=== PATIENT | male | born 1950 ===

== ENCOUNTER → 2016-09-21 | Day surgery (SDC) | payer OTHER ==
[2016-09-21] VITALS (11 sets, daily range): BP systolic 117–157; BP diastolic 77–93
[~2016-09-21] VITALS: Ht 175.3 cm; Wt 88.5 kg
[~2016-09-21] MED LIST: Bupivacaine w/Epi 0.25% 30ml Vial INJ ONE; EPINEPHrine 1mg/1ml Amp ONE; LR 1000ml ONE; Lidocaine 1% MPF 10mg/ml 5ml ONE; METFORMIN HCL500 M1 ORAL; Metoclopramide 10mg/2ml Inj IVP PRN; Metoclopramide 10mg/2ml Inj ONE; Midazolam 2mg/2ml Inj ONE; Morphine Sulfate 2mg/ml Inj IVP PRN; NS Irrig 4000ml IRRIG ONE; Norco 5mg/325mg tab ORAL PRN; Propofol 10mg/ml 20ml IV ONE; Ropivacaine 5mg/ml Vial 20ml INJ ONE; Zemuron 50mg/5ml Inj IV ONE; ceFAZolin 1gm/50ml Premix 50 ML IV ONE; celeBREX 200mg Cap **SURGERY PATIENTS ONLY ORAL ONE; ePHEDrine 50mg/ml Inj ONE; fentaNYL 100 mcg/2 mL IV ONE; fentaNYL 100 mcg/2 mL IV PRN; oxyCONTIN 20mg tab ORAL ONE
--- NOTE | 2016-09-21 08:16 | Operative Note - PDOC ---
Operative Note Operative Note Pre-op Diagnosis: right shoulder rct, impingement Procedure: right shoulder arthroscopy Post-op Diagnosis: same as pre-op plus Operative Findings: consistent w/pre-op dx studies Anesthesia: general Specimen: none Complications: none Condition: stable Estimated Blood Loss: none Implant(s) used?: JOHN Rodriguez Sep 21, 2016 08:16
--- NOTE | 2016-09-21 08:16 | Pre-Procedure Note/Attestation ---
Pre-Procedure Note/Attestation Complete Prior to Procedure Planned Procedure: left Procedure Narrative: shoulder arthroscopy, sad, possible rc repair Indications for Procedure Pre-Operative Diagnosis: right shoulder rct, impingement Attestation I attest that I discussed the nature of the procedure; its benefits; risks and complications; and alternatives (and the risks and benefits of such alternatives ), prior to the procedure, with the patient (or the patient's legal billing representative). I attest that, if there was a reasonable possibility of needing a blood transfusion, the patient (or the patient's legal billing representative) was given the [facility] standardized written summary, pursuant to the Jorge Rubicon Blood Safety Act ([place] Health and Safety Code # 1645, as amended). I attest that I re-evaluated the patient just prior to the surgery and that there has been no change in the patient's H&P, except as documented below: JOHN JAUREGUI Sep 21, 2016 08:16
--- NOTE | 2016-09-21 10:45 | Immediate Post-Op Evaluation ---
Immediate Post-Op Evalulation Immediate Post-Op Evalulation Procedure: left shoulder arthroscopy Date of Evaluation: Sep 21, 2016 Time of Evaluation: 10:44 IV Fluids: 500 Blood Pressure Systolic: 136 Blood Pressure Diastolic: 83 Pulse Rate: 53 Respiratory Rate: 14 O2 Sat by Pulse Oximetry: 99 Temperature (Fahrenheit): 97.4 Nausea: No Vomiting: No Complications none Patient Status: awake, reacts, patent Drug: ancef Given Within 1 Hr of Incision: Yes Time Given: 09:30 ARDEN LAINEZ CRNA Sep 21, 2016 10:45
--- NOTE | 2016-09-21 10:47 | Anethesia Preoperative Eval ---
Anesthesia Pre-op PMH/ROS General Date of Evaluation: Sep 21, 2016 Time of Evaluation: 09:00 Anesthesiologist: jessica ASA Score: ASA 2 Mallampati Score Class I : Soft palate, uvula, fauces, pillars visible Class II: Soft palate, uvula, fauces visible Class III: Soft palate, base of uvula visible Class IV: Only hard plate visible Mallampati Classification: Class II Surgeon: nuris Diagnosis: left shoulder pain Surgical Procedure: left shoulder arthroscopy Anesthesia History: none Social History: smoking, current smoker Family History: no anesthesia problems Allergies: Coded Allergies: No Known Allergies (Unverified , 05/02/16) Medications: see eMAR Past Medical History Cardiovascular: Denies: CAD, HTN, CO, arrhythmia, other, valve dz Pulmonary: Reports: other Gastrointestinal/Genitourinary: Denies: CRI, ESRD, GERD, other Neurologic/Psychiatric: Denies: CVA, TIA, dementia, depression/anxiety, other Endocrine: Reports: DM HEENT: Denies: OUZINKIE (L), OUZINKIE (R), cataract (L), cataract (R), glaucoma, other Hematology/Immune: Denies: DVT, anemia, bleeding disorder, other Musculoskeletal/Integumentary: Denies: DDD, DJD, OA, RA, edema, other Anesthesia Pre-op Phys. Exam Physician Exam Last Vital Signs Date Time Temp Pulse Resp B/P Pulse Ox O2 Delivery O2 Flow Rate FiO2 09/21/16 07:53 98.1 75 18 123/78 97 Room Air Constitutional: NAD Neurologic: CN 2-12 intact Cardiovascular: RRR Respiratory: CTA Gastrointestinal: S/NT/ND Airway Exam Mallampati Classification 2 Mallampati Score: Class II MO: full Neck: thick TMD: 1fb ROM: full Dentures: no lower, no upper Anesthesia Pre-op A/P Labs wnl Studies Pre-op Studies: EKG - SR Risk Assessment & Plan Plan: general and interscelne block Status Change Before Surgery: No Pre-Antibiotics Drug: ancef 2 g Given Within 1 Hr of Incision: Yes Time Given: 09:30 ARDEN LAINEZ CRNA Sep 21, 2016 10:47
--- NOTE | 2016-09-21 13:21 | 48 Hour Post Anesthesia Eval ---
Post Anesthesia Evaluation Procedure: left shoulder arthroscopy Date of Evaluation: Sep 21, 2016 Time of Evaluation: 11:30 Blood Pressure Systolic: 130 0: 77 Pulse Rate: 64 Respiratory Rate: 14 Airway: patent Nausea: No Vomiting: No Hydration Status: adequate Cardiopulmonary Status: normal Mental Status/LOC: patient returned to baseline Post-Anesthesia Complications: none Follow-up care needed: N/A ARDEN LAINEZ CRNA Sep 21, 2016 13:21
--- NOTE | 2016-09-21 19:30 | Operative Note - Dictated ---
DATE OF OPERATION: 09/21/2016 PREOPERATIVE DIAGNOSES: 1. Left shoulder partial rotator cuff tear. 2. Left shoulder impingement syndrome. POSTOPERATIVE DIAGNOSES: 1. Left shoulder partial rotator cuff tear. 2. Left shoulder impingement syndrome. PROCEDURES: 1. Left shoulder arthroscopy. 2. Intra-articular debridement to his left shoulder with subacromial decompression bursectomy. SURGEON: Farhan Cody M.D. ANESTHESIA: Left interscalene with general. INDICATION FOR THE PROCEDURE: The patient is a pleasant gentleman, who has had progressive left shoulder pain. He had evidence of a bursal-sided rotator cuff tear, a continued issue, therefore, elected to undergo left shoulder arthroscopy, possible repair versus debridement of the rotator cuff with subacromial decompression with bursectomy. Risks, limitations, expectations, and complications of the procedure were discussed in detail. All questions were addressed. DESCRIPTION OF PROCEDURE: An informed consent was obtained. The patient was taken to the operating room and placed under interscalene general anesthesia. The patient was then carefully placed in the beach-chair position. Left shoulder was prepped and draped in a sterile manner. Time-out was performed. A posterolateral stab incision was made. Trocar was introduced into the glenohumeral joint. Systematic tour of the shoulder was performed. No significant chondral damage. Anterior labrum appeared to be intact along with the subscapularis. The biceps tendon as well as superior labrum was intact. The undersurface of the rotator cuff was intact as well. At this point, the camera was repositioned into the subacromial space. Hypertrophic bursal tissue was all debrided and removed and identified the acromial spur. Acromioplasty was started from lateral to medial and completed from posterior to anterior. Once that was done, the bursal side of the rotator cuff was assessed and there was bursal-sided partial rotator cuff tear involving supraspinatus tendon. There is now full thickness. Bursectomy was completed. At that point, the instruments were removed. Portal sites were closed with 3-0 Monocryl suture. Steri-Strips and a sterile dressing were applied. The patient was awoken and taken to the recovery room with stable vital signs. ESTIMATED BLOOD LOSS: Minimal. COMPLICATIONS: None. SPECIMENS: None. IMPLANTS: None. Farhan Cody M.D. DR: ANTONIA JOB#: [id number] CC:
== END | disposition home or self-care (01) ==
LOC: SUR 07:16
DX: S46.012A Strain of muscle(s) and tendon(s) of the rotator cuff of left shoulder, initial encounter (principal); M75.42 Impingement syndrome of left shoulder; V49.9XXA Car occupant (driver) (passenger) injured in unspecified traffic accident, initial encounter; Y92.410 Unspecified street and highway as the place of occurrence of the external cause; Y99.9 Unspecified external cause status; E11.9 Type 2 diabetes mellitus without complications; Z79.84 Long term (current) use of oral hypoglycemic drugs; F17.210 Nicotine dependence, cigarettes, uncomplicated
CPT/HCPCS: 29823; 29826; 82962; J0171; J0690; J2250; J2405; J2704; J2765; J2795; J3010; J7120; 94003; 94150

== ENCOUNTER 2017-02-26 05:09 | Inpatient (IN) | payer OTHER ==
[2017-02-26] VITALS (15 sets, daily range): BP systolic 114–139; BP diastolic 75–93
[~2017-02-26] VITALS: Ht 175.3 cm; Wt 88.5 kg
[~2017-02-26 05:09] MED LIST changes: -Bupivacaine w/Epi 0.25% 30ml Vial INJ ONE; -EPINEPHrine 1mg/1ml Amp ONE; -LR 1000ml ONE; -Lidocaine 1% MPF 10mg/ml 5ml ONE; -Metoclopramide 10mg/2ml Inj IVP PRN; -Metoclopramide 10mg/2ml Inj ONE; -Midazolam 2mg/2ml Inj ONE; -Morphine Sulfate 2mg/ml Inj IVP PRN; -NS Irrig 4000ml IRRIG ONE; -Norco 5mg/325mg tab ORAL PRN; -Propofol 10mg/ml 20ml IV ONE; -Ropivacaine 5mg/ml Vial 20ml INJ ONE; -Zemuron 50mg/5ml Inj IV ONE; -ceFAZolin 1gm/50ml Premix 50 ML IV ONE; -celeBREX 200mg Cap **SURGERY PATIENTS ONLY ORAL ONE; -ePHEDrine 50mg/ml Inj ONE; -fentaNYL 100 mcg/2 mL IV ONE; -fentaNYL 100 mcg/2 mL IV PRN; -oxyCONTIN 20mg tab ORAL ONE
[2017-02-26] MEDS ORDERED: Thrombin 5000 units TOPIC ONE (06:30)
[2017-02-26] MEDS ORDERED: Heparin 5000 units/ml inj ONE (06:30)
[2017-02-26] MEDS ORDERED: Ropivacaine 5mg/ml Vial 20ml INJ ONE (06:31)
[2017-02-26] MEDS ORDERED: Bupivacaine 0.5% Inj 30 ml vial INJ ONE (06:31)
[2017-02-26] MEDS ORDERED: Surgicel 4in x 8in TOPIC ONE (06:31)
[2017-02-26] MEDS ORDERED: Bupivacaine w/Epi 0.5% 30ml Vial INJ ONE (06:31)
[2017-02-26] MEDS ORDERED: Bacitracin 50000 Units Vial ONE (06:31)
[2017-02-26] MEDS ORDERED: Vancomycin 1gm inj IVPB ONE (06:31)
[2017-02-26] MEDS ORDERED: LR 1000ml 1,000 ML IVLG SCH (06:34)
[2017-02-26] MEDS ORDERED: Metoclopramide 10mg/2ml Inj IVP PRN (06:45)
[2017-02-26] MEDS ORDERED: LORazepam Inj 2mg/ml 1ml IV PRN (06:45)
[2017-02-26] MEDS ORDERED: Midazolam 2mg/2ml Inj IVP PRN (06:45)
[2017-02-26] MEDS ORDERED: fentaNYL 100 mcg/2 mL IV PRN (06:45)
[2017-02-26] MEDS ORDERED: Meperidine 25mg/0.5ml Inj (FOR RIGORS ONLY) IV PRN (06:45)
[2017-02-26] MEDS ORDERED: Atropine Inj 1mg/10ml Syr IV PRN (06:45)
[2017-02-26] MEDS ORDERED: Ketorolac 30mg Inj IV PRN (06:45)
[2017-02-26] MEDS ORDERED: Norco 5mg/325mg tab ORAL PRN (06:45)
[2017-02-26] MEDS ORDERED: DiphenhydrAMINE 50mg/ml Inj IVP PRN (06:45)
[2017-02-26] MEDS ORDERED: Oxycodone/Acetaminophen 5-325 ORAL PRN (06:45)
[2017-02-26] MEDS ORDERED: Norco 7.5mg/325mg tab ORAL PRN (06:45)
[2017-02-26] MEDS ORDERED: Ketorolac 60mg Inj IV PRN (06:45)
--- NOTE | 2017-02-26 06:50 | Anethesia Preoperative Eval ---
Anesthesia Pre-op PMH/ROS General Date of Evaluation: Feb 26, 2017 Time of Evaluation: 07:21 Anesthesiologist: Kameron ASA Score: ASA 2 Mallampati Score Class I : Soft palate, uvula, fauces, pillars visible Class II: Soft palate, uvula, fauces visible Class III: Soft palate, base of uvula visible Class IV: Only hard plate visible Mallampati Classification: Class II Surgeon: Zack Diagnosis: Back Pain Surgical Procedure: ALIF L3-4, L4-5,PSF, Post Screws, Instruments Anesthesia History: none Family History: no anesthesia problems Allergies: Coded Allergies: No Known Allergies (Unverified , 05/02/16) Medications: see eMAR Past Medical History Cardiovascular: Reports: HTN Endocrine: Reports: DM - FBS 127 Other: other - Overweight Anesthesia Pre-op Phys. Exam Physician Exam Last Vital Signs Date Time Temp Pulse Resp B/P Pulse Ox O2 Delivery O2 Flow Rate FiO2 02/26/17 05:55 97.9 69 18 131/93 98 Room Air Constitutional: NAD Neurologic: CN 2-12 intact Cardiovascular: RRR Respiratory: CTA Gastrointestinal: S/NT/ND Airway Exam Mallampati Score: Class II MO: full ROM: limited Teeth: intact Anesthesia Pre-op A/P Risk Assessment & Plan Assessment: ASA 2 Plan: GA, BIS, Glidescope Status Change Before Surgery: No Pre-Antibiotics Dru Grams Ancef IV Given Within 1 Hr of Incision: Yes Time Given: 07:36 Terry Melo MD Feb 26, 2017 06:50
--- NOTE | 2017-02-26 06:51 | Immediate Post-Op Evaluation ---
Immediate Post-Op Evalulation Immediate Post-Op Evalulation Procedure: ALIF L3-4, L4-5,PSF, Post Screws, Instruments Date of Evaluation: Feb 26, 2017 Time of Evaluation: 12:14 IV Fluids: 1000 LR Blood Products: 0 Estimated Blood Loss: 50 Urinary Output: 350 Blood Pressure Systolic: 134 Blood Pressure Diastolic: 75 Pulse Rate: 79 Respiratory Rate: 16 O2 Sat by Pulse Oximetry: 99 Temperature (Fahrenheit): 97.8 Pain Score (1-10): 3 Nausea: No Vomiting: No Complications 0 Patient Status: awake, reacts, patent, extubated, none Hydration Status: adequate DruGrams Ancef IV Given Within 1 Hr of Incision: Yes Time Given: 07:36 Terry Melo MD Feb 26, 2017 06:51
[2017-02-26] MEDS ORDERED: Propofol 10mg/ml 100ml btl IV ONE (07:00)
[2017-02-26] MEDS ORDERED: Dexamethasone 20mg/5ml IVP ONE (07:00)
[2017-02-26] MEDS ORDERED: ceFAZolin sod 1 GM in NS 55 ML IVPB ONE (07:00)
[2017-02-26] MEDS ORDERED: Acetaminophen (Non formulary) 1,000 MG/100 ML ML IV ONE (07:15)
[2017-02-26] MEDS ORDERED: Metoprolol 5mg/5ml Inj ONE (07:30)
[2017-02-26] MEDS ORDERED: fentaNYL 250mcg/5ml ONE (07:30)
[2017-02-26] MEDS ORDERED: Lidocaine 1% Plain 30 ml INJ ONE (07:30)
[2017-02-26] MEDS ORDERED: Neostigmine 1mg/ml 10ml Inj ONE (07:30)
[2017-02-26] MEDS ORDERED: Midazolam 2mg/2ml Inj ONE (07:30)
[2017-02-26] MEDS ORDERED: oxyCODONE 5mg IR tab ORAL PRN ×2 (07:30→10:30)
[2017-02-26] MEDS ORDERED: LR 1000ml ONE (07:30)
[2017-02-26] MEDS ORDERED: Sterile Water Irrig 1000ml IRRIG ONE (07:30)
[2017-02-26] MEDS ORDERED: Chloraseptic Spray 20mL Bottle ORAL PRN (07:30)
[2017-02-26] MEDS ORDERED: fentaNYL 100 mcg/2 mL IV ONE (07:30)
[2017-02-26] MEDS ORDERED: HYDROmorphone 1mg/ml Carpuject IVP PRN (07:30)
[2017-02-26] MEDS ORDERED: Zemuron 50mg/5ml Inj IV ONE (07:30)
[2017-02-26] MEDS ORDERED: Lidocaine 1% MPF 10mg/ml 5ml ONE (07:30)
[2017-02-26] MEDS ORDERED: NS Irrig 1000ml ONE (07:30)
[2017-02-26] MEDS ORDERED: Glycopyrrolate 0.2mg/ml 1ml Vial ONE (07:30)
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
[2017-02-26] MEDS ORDERED: HYDROmorphone 1mg/ml Carpuject SUBQ PRN (11:45)
[2017-02-26] MEDS ORDERED: Naloxone 0.4mg/ml Inj IVP PRN (11:45)
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
[2017-02-26] MEDS: Hydromorphone 0.5mg/0.5ml inj IVP PRN ×3 (12:26→13:15)
[2017-02-26] MEDS ORDERED: PCA HYDROmorphone 1mg/ml 30 ML IV PRN ×2 (13:30)
--- NOTE | 2017-02-26 13:34 | Diagnostic Imaging Report ---
Indication: Back pain Comparison: None Findings: Fluoroscopic views of the lumbar spine were obtained. Intraoperative imaging showing replacement of the L3-4 and L4-5 discs with prosthetic discs. Initial films show localization of these 2 levels. Impression: Intraoperative imaging
[2017-02-26] MEDS ORDERED: D5 1/2NS 1,000 ML IV SCH (15:15)
[2017-02-26] MEDS: ceFAZolin sod 1 GM in D5W 55 ML IV SCH (16:23)
--- NOTE | 2017-02-26 17:15 | Operative Note - Dictated ---
DATE OF OPERATION: 02/26/2017 PREOPERATIVE DIAGNOSIS: Posttraumatic lumbar back pain. POSTOPERATIVE DIAGNOSIS: Posttraumatic lumbar back pain. SURGEON: Albert Dixon, Ph.D., M.D., anterior and Dr. Chance, Vascular Surgery, anterior. Please see separate dictation for exposure and closure by Dr. Dixon with assist. Posterior, Dr. Albert Dixon, Ph.D., M.D., primary surgeon. [employer] OPERATOR: BLANCO Hoyos. ANESTHESIOLOGIST: Terry Melo M.D. ANESTHESIA: General with intubation. PROCEDURES: 1. Anterior interbody reconstruction and fusion with internal fixation, fusion with bone morphogenic protein and titanium spacer L3-L4 and L4-L5. 2. Intraoperative fluoroscopy interpreted by surgeons. 3. SSEP monitoring. 4. Postop posterior surgery. 5. Pedicle screw instrumentation L3-L5 and facet fusions L3-L4 and L4-L5. 6. Fluoroscopy interpreted by surgeons. 7. Electrical screw stimulation. PROCEDURE IN DETAIL: The patient was brought to the operating room and in supine position, general anesthesia with intubation was induced. Intravenous antibiotics and intravenous Decadron were administered 30 minutes prior to incision time. After appropriate positioning, the anterior abdomen was sterilely prepped and draped free in the usual sterile fashion. Please see exposure dictation and closure dictation by Dr. Chance. Identification of the L3-L4 and L4-L5 intervals were undertaken with cross-table and AP fluoroscopic imaging under sterile conditions with a needle placed into the disc spaces demonstrating midline and correct disks. Levels were marked. Midline marked. Oldhams removed. L3-L4: Anterior annulotomy followed with diskectomy to but not through the posterior longitudinal ligament was undertaken. Denuding of the endplates, cephalad caudad to subchondral bone/removal of cartilage undertaken. SSEP monitoring stable. Appropriate trials utilized followed with the appropriate Aero Lacey interbody titanium device application, lordosis with BMP placed within the device for fusion. Internal fixation undertaken. Fluoroscopic guidance demonstrated excellent alignment and positioning. SSEP monitoring stable. Graft was incorporated in fibrin glue. Attention was turned to the L4-L5 interval where an annulotomy was performed followed with diskectomy to but not through the posterior longitudinal ligament. Denuding of endplates to subchondral bone. Interpositional grafting with the titanium Aero Sanjana graft with lordosis. Graft containing bone morphogenic protein placed for fusion. After appropriate positioning internal fixation deployed. Fluoroscopic guidance demonstrated excellent alignment and positioning. The patient is stable. No dural tears or leaks or CSF fluid noticed at any time during the procedure by the level. The L4-L5 graft was encased in fibrin glue. After complete closure, the patient was carefully turned to the new operating table to the prone position. All new instruments opened. Lumbodorsal spine was sterilely prepped and draped free in usual sterile fashion. Fluoroscopic guidance under sterile conditions with markers in place demonstrating the correct level for incision placement. Markers removed. Incision was placed through dermis and epidermis. Electrocautery dissection carried through the subcutaneous tissue to the level of lumbodorsal fascia and incised right and left of midline over the respective intervals. Exposure undertaken at the pars articularis insertion sites bilaterally for the L3, L4, and L5 pedicle screws. Pedicle screw instrumentation was undertaken at bilateral L3 and bilateral L5 with sequential drilling of the posterior cortex with the appropriate positions based on anatomy and fluoroscopic guidance followed with probing of the pedicle, tapping of the pedicle, and determination of cortical wall integrity with a ball-tip probe. Screw placement with the appropriate dimensions placed. SSEP monitoring normal. No EMGs. Screws stimulated at 5 milliamps negative bilaterally with 4 twitches noted on skin. Wound irrigated with antibiotic-containing saline. Interpositional rods clamped into position and torqued. Wound re-irrigated with antibiotic-containing saline. A 2 g vancomycin powder applied. Sequential reapproximation with Vicryl suture material of the lumbodorsal fascia and subcutaneous tissue in multiple layers. Dermis and epidermis were further reapproximated with staple sutures. Sterile bandage applied and maintained in place with tape. The patient carefully turned from the prone to the supine position on the transport bed where he was awakened and extubated in the operating room and transported to postop recovery in good stable condition. Albert Dixon M.D. DR: ANGELA JOB#: [id number] CC:
--- NOTE | 2017-02-26 18:00 | Operative Note - Dictated ---
DATE OF OPERATION: 02/26/2017 DICTATING PHYSICIAN: Aj Chance M.D. VASCULAR SURGEON: Aj Chance M.D. SPINE SURGEON: Albert Dixon M.D. PREOPERATIVE DIAGNOSIS: Degenerative disk disease. POSTOPERATIVE DIAGNOSIS: Degenerative disk disease. PROCEDURE PERFORMED: 1. Anterior retroperitoneal exposure of L3-4 vertebral interspace. 2. Anterior retroperitoneal exposure of L4-5 vertebral interspace. INDICATIONS: The patient is a very pleasant gentleman, who was seen in my office prior to surgery. He has been scheduled for anterior fusion of lumbar spine. He has no prior intra-abdominal surgeries. He denies any history of deep venous thrombosis or bleeding complications. He has been made aware of the risks of surgery including possible vascular injury and possible need for blood transfusion, and deep venous thrombosis. DESCRIPTION OF FINDINGS: A vertical midline incision was used, left retroperitoneal approach was used. There was no peritoneal or ureteral violation. There is no vascular injury. Exposure of both L3-4 and L4-5 was obtained simultaneously with the use of both the Omni and Park blades. On completion, the peritoneum and ureter intact. Iliac vessels are intact. There is a palpable femoral pulse and normal pulse oximetry in the left foot. During retraction, there was a loss of the pulse oximetry signal as well as some decreased somatosensory potentials, however, both of these returned to normal with the use of retractor and on completion, palpable pulses. BLOOD LOSS: Approximately 100 to 150 mL. DESCRIPTION OF PROCEDURE: The patient seen in the operating room, general anesthesia was used. Intravenous antibiotics were given. The patient's abdomen was prepped draped. Proper time-out procedures were taken. A vertical midline incision made infraumbilically. The anterior fascia was incised longitudinally midline. A plane was identified posterior to the left rectus abdominis developed posterolaterally towards the patient's left. The retroperitoneal space entered below the arcuate line. The peritoneum and ureter mobilized towards the patient's right exposing the left common iliac vessels. Dissection carried out the left side of the left common iliac artery and vein overlying lymphatics were ligated with vascular clips. The iliolumbar veins identified and encircled using a 2-0 silk tie and then triply ligated proximally distally vascular clips and divided. Then, the L4 segmental artery and vein were also identified and ligated with vascular clips and divided. The L3 segmental artery and vein as well as large lymphatics were identified and ligated with vascular clips and then divided. This allowed us to retract the left common vessels towards the patient's right exposing the anterior surface of the L3-4 and L4-5. The Park blades were used to retract the iliac vessels around the right side of the vertebral body and vessels superiorly and inferiorly and fluoroscopy was then used to confirm the appropriate levels. An instrumentation was performed at both L3-4 and L4-5 dictated separately. On completion, the peritoneum and ureter intact. Iliac vessels are intact. Anterior fascia closed using number 1 PDS in a running fashion. Skin and subcutaneous tissue closed using 3-0 Vicryl and 4-0 Monocryl running subcuticular closure technique. Estimated blood loss was 100 to 200 mL. COMPLICATIONS: None. Aj Chance M.D. DR: CHANDA JOB#: [id number] CC: Whit Rosario M.D. ; Fax#: [phone]
[2017-02-26] MEDS: Tamsulosin 0.4mg cap ORAL SCH (20:25)
[2017-02-27 00:13] VITALS: BP 123/74
[2017-02-27] MEDS: ceFAZolin sod 1 GM in D5W 55 ML IV SCH ×2 (00:34→08:26)
[2017-02-27 04:00] VITALS: BP 138/81
[2017-02-27] MEDS: NovoLOG Insulin Flexpen SUBQ SCH ×5 (06:00→23:10)
[2017-02-27] MEDS: PCA shift volume MISC SCH ×2 (07:07→19:00)
[2017-02-27 08:00] VITALS: BP 128/76
--- NOTE | 2017-02-27 10:10 | 48 Hour Post Anesthesia Eval ---
Post Anesthesia Evaluation Procedure: ALIF L3-4, L4-5,PSF, Post Screws, Instruments Date of Evaluation: Feb 27, 2017 Time of Evaluation: 10:09 Blood Pressure Systolic: 117 0: 78 Pulse Rate: 77 Respiratory Rate: 11 Temperature (Fahrenheit): 97 O2 Sat by Pulse Oximetry: 98 Nausea: No Vomiting: No Alvaro Miller MD Feb 27, 2017 10:10
--- NOTE | 2017-02-27 11:33 | General Progress Note ---
Progress Note Progress Note POD 2 AVSS - bowel sounds minimally distended no ower extremity radiculopathy n/c intact plan NPO until Flatus or Bowel Movement Gait training 3 x today with PY up to chair 2 x / day min 1 hr each time JOAO FIGUEROA Feb 27, 2017 11:33
[2017-02-27 12:00] VITALS: BP 130/77
[2017-02-27 16:00] VITALS: BP 109/60
[2017-02-27] MEDS ORDERED: 1/2 NS 1000ml IV ONE (17:05)
[2017-02-27] MEDS ORDERED: D5 1/2NS 1000ml IV ONE (17:05)
--- NOTE | 2017-02-27 18:15 | Progress Note ---
DATE: 02/27/2017 ACUTE PAIN MANAGEMENT PHYSICIAN PROGRESS NOTE MEDICATIONS: Medication administration record reviewed. Medications include Tylenol, Mylanta, Soma, Benadryl, [place], Dilaudid PACKING ATTENDANT, Roxicodone, Protonix, Chloraseptic, Phenergan, and Flomax. LABORATORY STUDIES: No interval laboratory studies. OBJECTIVE: VITAL SIGNS: Pulse oximetry 98%, respiration 11, pulse 77, and afebrile. I spent over 60 minutes in consultation today. I saw the patient at the bedside with his . I discussed the case with the nurse RN, Mitzi. The patient did ambulate with physical therapy to the room door. He is moving all extremities x4. He has considerable left lower quadrant abdominal pain by the incision area. The patient denies any nausea symptoms. He does have positive bowel sounds but has not been burping or passing flatus yet. We will continue him on NPO except for medications and ice chips until there is evidence of baptist of bowel function after his anterior lumbar interbody fusion procedure. The patient continues to use his PACKING ATTENDANT unit and does have several p.r.n. analgesics available as well including Soma, [place], and breakthrough Dilaudid. I will continue this current analgesic plan as the patient advances with his ambulation. I encouraged aggressive use of incentive spirometer for good pulmonary toilet. The patient already has a good supply of pain medicines at home from his 2016 hospitalization. I did encourage aggressive incentive spirometer usage. Isrrael Campbell M.D. : PIPPA JOB#: [id number] CC:
[2017-02-27 20:00] VITALS: BP 127/65
[2017-02-27] MEDS: Tamsulosin 0.4mg cap ORAL SCH (21:03)
[2017-02-28 04:00] VITALS: BP 135/83
[2017-02-28] MEDS: NovoLOG Insulin Flexpen SUBQ SCH ×3 (05:57→17:43)
[2017-02-28] MEDS: PCA shift volume MISC SCH (07:07)
[2017-02-28 08:00] VITALS: BP 140/80
[2017-02-28] MEDS ORDERED: 1/2 NS 1000ml IV ONE (10:46)
[2017-02-28] MEDS: Norco 10mg/325mg tab ORAL PRN ×3 (11:17→23:13)
[2017-02-28 12:00] VITALS: BP 121/78
--- NOTE | 2017-02-28 14:44 | General Progress Note ---
Progress Note Progress Note AQVSS - joss reed d/c n/c intact plan: cannot advance diet until JOAO Pelletier Feb 28, 2017 14:44
[2017-02-28 16:00] VITALS: BP 140/91
--- NOTE | 2017-02-28 17:30 | Progress Note ---
DATE: 02/28/2017 ACUTE PAIN MANAGEMENT PHYSICIAN PROGRESS NOTE.: MEDICATIONS: Medication administration record reviewed. Medications include IV fluids, Protonix, Flomax. P.o. medications include diabetic medications, [place], Phenergan, Soma, Chloraseptic spray, Benadryl, Mylanta, Zofran, Dilaudid, and Tylenol. OBJECTIVE: VITAL SIGNS: Afebrile, pulse 103, respirations 20, blood pressure 140/80, and oxygen saturation 95% on room air. LABORATORY STUDIES: No interval laboratory studies. I spent over 60 minutes in consultation today. I saw the patient at bedside with the nurse RN Malissa. The patient has been doing exceedingly well. He has been ambulating repeatedly with assistance and his front wheel walker. He denies any shortness of breath or chest pain. The pain is very well controlled, which he rates at 4/10. At this time on postoperative day #2, I will trial him off of the SPECIAL ED ASSISTANT unit. I will continue him on breakthrough doses of [place], Soma, and low-dose Dilaudid for analgesia. The patient has no symptoms or obvious signs of anxiety. The Martines catheter remains in place. We will check in with the surgeon when he is cleared to remove, we will try removing the Martines catheter. The patient remains NPO except for medications and ice chips. He has not passed positive flatus after his anterior lumbar interbody fusion procedure. He is having mild abdominal distention and but there is no rebound or any bound or guarding. The patient has been very compliant using his incentive spirometer. Overall, the patient is progressing very well after his fusion surgery, we will continue to wait for druze of bowel function as evidenced with positive flatus. He will remain on IV fluids for adequate hydration. I will continue with his analgesic regimen as outlined above. Isrrael Campbell M.D. : PIPPA JOB#: [id number] CC:
[2017-02-28 20:00] VITALS: BP 142/85
[2017-03-01] VITALS: BP 143/91
[2017-03-01 04:00] VITALS: BP 127/77
[2017-03-01] MEDS: Norco 10mg/325mg tab ORAL PRN ×3 (04:57→16:51)
[2017-03-01] MEDS: NovoLOG Insulin Flexpen SUBQ SCH ×4 (06:00→17:25)
[2017-03-01 08:00] VITALS: BP 118/70
--- NOTE | 2017-03-01 11:16 | Progress Note ---
DATE: 03/01/2017 ACUTE PAIN MANAGEMENT PHYSICIAN PROGRESS NOTE MEDICATIONS: Medication administration record reviewed. Medications include Phenergan, Chloraseptic, Protonix, Zofran, insulin medications, diabetes medications, Dilaudid, [place], Benadryl, Soma, Mylanta, and Tylenol. LABORATORY STUDIES: No interval laboratory studies. OBJECTIVE: VITAL SIGNS: Pain level is 5/10 on the visual analog pain scale, oxygen saturation 100% on room air, blood pressure 143/91, respirations 18, pulse 105, and afebrile. I saw the patient at the bedside with his after discussing with the nurse RN, Sunday. The patient continues to ambulate aggressively. His is present for good social support. I spent over 60 minutes in consultation today. I discussed the case with the surgeon, Dr. Dixon. The patient just started passing positive flatus. I have asked the nurse to contact the surgeon, Dr. Dixon, to determine if it is okay to advance the patient's diet now that he shows advancement and return of bowel function. The patient is hungry and denies any nausea symptoms. The patient has been very compliant using his incentive spirometer along with ambulating aggressively. We will continue these to . The patient has been tolerating his pain off of the CURATOR OF EDUCATION unit by using p.r.n. Addison, Dilaudid, and Soma. We will continue this regimen for primary analgesia. When the patient is in bed, we will continue sequential compression pneumatic devices for DVT prophylaxis. Overall, the patient is progressing well after his extensive lumbar spine fusion surgery. Isrrael Campbell M.D. DR: JULIANNE JOB#: [id number] CC:
[2017-03-01 12:00] VITALS: BP 150/95
[2017-03-01 16:00] VITALS: BP 148/89
[2017-03-01 20:00] VITALS: BP 142/97
[2017-03-02] VITALS: BP 119/65
[2017-03-02 04:00] VITALS: BP 137/65
[2017-03-02] MEDS: Norco 10mg/325mg tab ORAL PRN ×2 (04:33→15:41)
[2017-03-02] MEDS: NovoLOG Insulin Flexpen SUBQ SCH ×3 (06:00→12:00)
[2017-03-02] MEDS ORDERED: Fleet's Enema 133ml RECTAL PRN (07:30)
[2017-03-02] MEDS ORDERED: Magnesium Citrate Liq Btl ORAL PRN (07:30)
[2017-03-02 08:00] VITALS: BP 143/84
[2017-03-02] MEDS ORDERED: Magnesium Citrate Liq Btl ORAL ONE (08:30)
--- NOTE | 2017-03-02 08:30 | Progress Note ---
DATE: 03/02/2017 ACUTE PAIN MANAGEMENT PHYSICIAN PROGRESS NOTE MEDICATIONS: Medication administration record reviewed. Medications include Tylenol, Mylanta, Norvasc, Soma, Benadryl, [place], Dilaudid, magnesium citrate, diabetic medications, Demerol, Zofran, Protonix, Chloraseptic, and Phenergan. LABORATORY STUDIES: No interval laboratory studies. OBJECTIVE: VITAL SIGNS: Pain level is 5/10 on the visual analog pain scale with right hip pain with ambulation, which is attempted well with the [place] pills. Temperature afebrile, pulse 80, respirations 15, blood pressure 137/65, and oxygen saturation 97% on room air. I spent over 60 minutes in consultation today. I saw the patient at bedside with his . The patient is ambulating extremely well using his front wheel walker as he is passing plenty of flatus. Denies any nausea symptoms. He has been advancing diet well and has a good appetite. He has plenty of [place] pills already at home. Norflex here in the hospital have been effective with his back pain. Again, the [place] pills are also helping with his right hip pain. I explained the patient that a postoperative swelling at the level of the nerve roots is quite common place and should continue to improve over the next several weeks. The patient will follow up with Dr. Dixon in the outpatient surgical clinic regarding this right hip pain. The patient denies any calf tenderness and has been ambulating aggressively for DVT prophylaxis. The patient denies any shortness of breath or chest pain. When the patient is able to discharge to home per the surgeon, the patient's brother will be able to assist with transportation home. For now, the patient still has not yet had a bowel movement after his anterior lumbar interbody fusion surgery. We would like to see proof of improved bowel function after this anterior lumbar interbody fusion surgery. Therefore, we will dose the patient with magnesium citrate this morning. The patient has normal vital signs. Has been compliant using his incentive spirometer. I expect that after a bowel movement, the patient will be discharged to home. The patient's questions were all answered and the patient was seen pleased and comfortable with my Pain Management service. I discussed the patient's condition with the surgeon, Dr. Dixon. Isrrael Campbell M.D. DR: MIRNA JOB#: [id number] CC:
[2017-03-02] MEDS ORDERED: 1/2 NS 1000ml IV ONE (10:47)
[2017-03-02 11:47] VITALS: BP 132/77
[2017-03-02] MEDS ORDERED: metFORMIN 500mg tab ORAL SCH ×2 (12:30→18:00)
[2017-03-02] MEDS ORDERED: NORCO 10-325 T1 EACH ORAL (15:34)
[2017-03-02] MEDS ORDERED: SOMA350 MG PO (15:35)
--- NOTE | 2017-03-04 14:29 | Discharge Summary ---
Discharge Summary Hospital Course Date of Admission Feb 26, 2017 at 05:09 Date of Discharge Mar 02, 2017 at 17:00 Admitting Diagnosis DDD, posttraumatic lumbar back pain Reason for Hospitalization: elective surgery HPI Christo Aguilar is a 66 year old male who was admitted on Feb 26, 2017 at 05:09 for posttraumatic discogenic lumbar back pain Consultations dr Campbell - pain specialist Procedures 02/26/17 - dr Dixon 1. Anterior interbody reconstruction and fusion with internal fixation, fusion with bone morphogenic protein and titanium spacer L3-L4 and L4-L5. 2. Intraoperative fluoroscopy interpreted by surgeons. 3. SSEP monitoring. 4. Postop posterior surgery. 5. Pedicle screw instrumentation L3-L5 and facet fusions L3-L4 and L4-L5. 6. Fluoroscopy interpreted by surgeons. 7. Electrical screw stimulation. 02/26/17 - dr Chance 1. Anterior retroperitoneal exposure of L3-4 vertebral interspace. 2. Anterior retroperitoneal exposure of L4-5 vertebral interspace. Hospital Course s/p surgery course of recovery uneventful initially IVF pain management pain specialist followed pain addressed, managed nd controlled neurovascular intact ambulated with PT, fall precautions maintained IS while in bed incision C/D/I able to tolerate diet voided freely bowel regimen instituted BS management with metformin and SS of insulin prn DVT GI prophylaxis cleared for dc and fup as outpatient with surgeon FINAL DIAGNOSIS: DDD posttraumatic lumbar back pain s/p Anterior interbody reconstruction and fusion with internal fixation, fusion with bone morphogenic protein and titanium spacer L3-L4 and L4-L5. acute postoperative lumbar spine pain acute and heavy tobacco use DM personal injury Discharge Medications Continued Medications: Carisoprodol* (Soma*) 350 Mg Tablet 350 MG PO QID for Muscle Spasm, #90 TAB Hydrocodone Bit/Acetaminophen 10-325* (Jasper 10-325*) 1 Each Tablet 1 TAB ORAL QID for For Pain, #120 TAB 0 Refills PRN PAIN Metformin Hcl* (Metformin Hcl*) 500 Mg Tablet 1000 MG ORAL BID, TAB Discharge Condition Upon Discharge: stable Discharge Disposition Patient was discharged to Home () Discharge Diagnoses: Discharge Instructions Discharge Instructions Special Instructions I have been assigned to complete a D/C Summary on this account. I was not involved in the patient management Zhanna Horn NP (Vanchtein) Mar 04, 2017 14:29
== END 2017-03-02 17:00 | disposition home or self-care (01) | DRG 460 ==
LOC: SDSOVERFLO 05:09 → 3E 14:32
DX: M51.36 Other intervertebral disc degeneration, lumbar region (principal); E11.9 Type 2 diabetes mellitus without complications; G89.18 Other acute postprocedural pain; F17.200 Nicotine dependence, unspecified, uncomplicated
CPT/HCPCS: 36415; 72020; 76001; 82962; 86850; 86900; 86901; 87081; 94003; 94150; J1815; J2180; J2250; J2405; J2710

== ENCOUNTER 2017-11-13 07:07 | Inpatient (IN) | payer OTHER ==
[~2017-11-13] VITALS: Ht 175.3 cm; Wt 93.0 kg
[2017-11-13] VITALS (11 sets, daily range): BP systolic 100–146; BP diastolic 59–88
[~2017-11-13 07:07] MED LIST changes: +Dexamethasone 20mg/5ml IVP ONE; +NORCO 10-325 T1 EACH ORAL; +SOMA350 MG PO; +ceFAZolin sod 1 GM in D5W 55 ML IVPB ONE
[2017-11-13] MEDS ORDERED: GLIPIZIDE5 MG ORAL (08:12)
--- NOTE | 2017-11-13 08:33 | Pre-Procedure Note/Attestation ---
Pre-Procedure Note/Attestation Complete Prior to Procedure Planned Procedure: not applicable Procedure Narrative: exploration fusion mass, removal pedicle screw instrumentation Indications for Procedure Pre-Operative Diagnosis: pain Attestation I attest that I discussed the nature of the procedure; its benefits; risks and complications; and alternatives (and the risks and benefits of such alternatives ), prior to the procedure, with the patient (or the patient's legal business center representative). I attest that, if there was a reasonable possibility of needing a blood transfusion, the patient (or the patient's legal business center representative) was given the [facility] standardized written summary, pursuant to the Jorge Cortez Blood Safety Act ([place] Health and Safety Code # 1645, as amended). I attest that I re-evaluated the patient just prior to the surgery and that there has been no change in the patient's H&P, except as documented below: JOAO FIGUEROA Nov 13, 2017 08:33
[2017-11-13] MEDS ORDERED: LR 1000ml 1,000 ML IVLG SCH (08:43)
[2017-11-13] MEDS ORDERED: Midazolam 2mg/2ml Inj IVP PRN (08:45)
[2017-11-13] MEDS ORDERED: Ketorolac 30mg Inj IV PRN ×2 (08:45)
[2017-11-13] MEDS ORDERED: Labetalol 5mg/ml 20ml vial IV PRN (08:45)
[2017-11-13] MEDS ORDERED: Hydromorphone 0.5mg/0.5ml inj IVP PRN (08:45)
[2017-11-13] MEDS ORDERED: oxyCODONE HCL/Acetaminophen 5/325mg ORAL PRN (08:45)
[2017-11-13] MEDS ORDERED: LORazepam Inj 2mg/ml 1ml IV PRN (08:45)
[2017-11-13] MEDS ORDERED: HYDROcodone/Acetamin 7.5/325 tab ORAL PRN (08:45)
[2017-11-13] MEDS ORDERED: DiphenhydrAMINE 50mg/ml Inj IVP PRN (08:45)
[2017-11-13] MEDS ORDERED: fentaNYL 100 mcg/2 mL IV PRN (08:45)
[2017-11-13] MEDS ORDERED: Atropine Inj 1mg/10ml Syr IV PRN (08:45)
[2017-11-13] MEDS ORDERED: Acetaminophen (Non formulary) 100 ML IV ONE (08:45)
[2017-11-13] MEDS ORDERED: Norco 5mg/325mg tab ORAL PRN (08:45)
--- NOTE | 2017-11-13 08:45 | Anethesia Preoperative Eval ---
Anesthesia Pre-op PMH/ROS General Date of Evaluation: Nov 13, 2017 Time of Evaluation: 09:18 Anesthesiologist: Kameron ASA Score: ASA 3 Mallampati Score Class I : Soft palate, uvula, fauces, pillars visible Class II: Soft palate, uvula, fauces visible Class III: Soft palate, base of uvula visible Class IV: Only hard plate visible Mallampati Classification: Class II Surgeon: Zack Diagnosis: Back Pain Surgical Procedure: Remove Hardware L 4-5, Explore Fusion. Anesthesia History: none Family History: no anesthesia problems Allergies: Coded Allergies: No Known Allergies (Unverified , 11/13/17) Medications: see eMAR Past Medical History Cardiovascular: Reports: HTN Neurologic/Psychiatric: Reports: depression/anxiety Endocrine: Reports: DM Other: obesity - BMI 32 PSxH Narrative: Spine SX Anesthesia Pre-op Phys. Exam Physician Exam Last Vital Signs Date Time Temp Pulse Resp B/P (MAP) Pulse Ox O2 Delivery O2 Flow Rate FiO2 11/13/17 08:28 97.5 70 18 136/80 100 Room Air 97.5 Constitutional: NAD Neurologic: CN 2-12 intact Cardiovascular: RRR Respiratory: CTA Gastrointestinal: S/NT/ND Airway Exam Mallampati Classification ASA 3 Mallampati Score: Class II MO: limited ROM: limited Teeth: missing, intact Anesthesia Pre-op A/P Risk Assessment & Plan Assessment: ASA 3 Plan: GA, BIS, GlideScope Status Change Before Surgery: No Pre-Antibiotics Dru Grams Ancef IV Given Within 1 Hr of Incision: Yes Time Given: 09:36 Terry Melo MD Nov 13, 2017 08:45
[2017-11-13] MEDS ORDERED: Neostigmine 1mg/ml 10ml Inj ONE (09:00)
[2017-11-13] MEDS ORDERED: Glycopyrrolate 0.2mg/ml 1ml Vial ONE (09:00)
[2017-11-13] MEDS ORDERED: Midazolam 2mg/2ml Inj ONE (09:00)
[2017-11-13] MEDS ORDERED: LR 1000ml ONE (09:00)
[2017-11-13] MEDS ORDERED: NS Irrig 1000ml ONE (09:00)
[2017-11-13] MEDS ORDERED: fentaNYL 100 mcg/2 mL IV ONE (09:00)
[2017-11-13] MEDS ORDERED: Sterile Water Irrig 1000ml IRRIG ONE (09:00)
[2017-11-13] MEDS ORDERED: Lidocaine 1% MPF 10mg/ml 5ml ONE (09:00)
[2017-11-13] MEDS ORDERED: Labetalol 5mg/ml 20ml vial IV ONE (09:00)
[2017-11-13] MEDS ORDERED: Propofol 1,000mg/ 100ml btl IV ONE (09:00)
[2017-11-13] MEDS ORDERED: Zemuron 50mg/5ml Inj IV ONE (09:00)
[2017-11-13] MEDS ORDERED: Thrombin 5000 units TOPIC ONE ×2 (09:07→10:30)
[2017-11-13] MEDS ORDERED: Lidocaine 1% Plain 30 ml INJ ONE (09:08)
[2017-11-13] MEDS ORDERED: Bacitracin 50000 Units Vial ONE (09:08)
[2017-11-13] MEDS ORDERED: Vancomycin 1gm inj IVPB ONE (09:09)
--- NOTE | 2017-11-13 10:01 | Immediate Post-Op Evaluation ---
Immediate Post-Op Evalulation Immediate Post-Op Evalulation Procedure: Remove Hardware L 4-5, Explore Fusion. Date of Evaluation: Nov 13, 2017 Time of Evaluation: 11:27 IV Fluids: 1000 LR Blood Products: 0 Estimated Blood Loss: 25 Urinary Output: 0 Blood Pressure Systolic: 110 Blood Pressure Diastolic: 70 Pulse Rate: 53 Respiratory Rate: 16 O2 Sat by Pulse Oximetry: 100 Temperature (Fahrenheit): 97.6 Pain Score (1-10): 3 Nausea: No Vomiting: No Complications 0 Patient Status: awake, reacts, patent, extubated, none Hydration Status: adequate Dru Grams Ancef IV Given Within 1 Hr of Incision: Yes Time Given: 09:36 Terry Melo MD Nov 13, 2017 10:01
--- NOTE | 2017-11-13 10:38 | Brief Operative Note ---
Immediate Post Operative Note Operative Note Pre-op Diagnosis: pain Procedure: exploration fusion mass pedicle screw instrumentation removal Scar Local Findings: consistent w/pre-op dx studies Surgeon: Zack GOODE Sports Trainer: Chilo SIMEON Anesthesiologist: Kameron GOODE Anesthesia: general Specimen: yes Complications: none Condition: stable Fluids: anesthesia Estimated Blood Loss: minimal Drains: none Implant(s) used?: No JOAO FIGUEROA Nov 13, 2017 10:38
[2017-11-13] MEDS ORDERED: Naloxone 0.4mg/ml Inj IVP PRN (13:00)
[2017-11-13] MEDS ORDERED: D5 1/2NS 1,000 ML IV SCH (13:30)
[2017-11-13] MEDS ORDERED: Milk of Magnesia 30ml Ud ORAL PRN (16:15)
[2017-11-13] MEDS ORDERED: HYDROmorphone 1mg/ml Carpuject IVP PRN (16:15)
[2017-11-13] MEDS ORDERED: HYDROcodone/Acetamin 10/325 tab ORAL PRN (17:00)
[2017-11-13] MEDS ORDERED: Docusate 100mg/10ml Liq NG SCH (18:00)
[2017-11-13] MEDS ORDERED: Chloraseptic Spray 20mL Bottle ORAL PRN (18:00)
[2017-11-13] MEDS ORDERED: ceFAZolin sod 1 GM in D5W 110 ML IV SCH (18:00)
--- NOTE | 2017-11-13 18:15 | Operative Note - Dictated ---
DATE OF OPERATION: 11/13/2017 SURGEON: Albert Dixon, Ph.D., M.D. STORYBOARD ARTIST: BLANCO Hoyos. ANESTHESIOLOGIST: Terry Melo M.D. ANESTHESIA: General with intubation. ADMITTING/PREOPERATIVE DIAGNOSES: Postoperative back pain, pedicle screw instrumentation irritation, paraspinal muscles. POSTOPERATIVE DIAGNOSES: Postoperative back pain, pedicle screw instrumentation irritation, paraspinal muscles. OPERATIVE PROCEDURE: 1. Exploration of fusion mass, lumbar spine. 2. Removal of pedicle screw instrumentation, lumbar spine. 3. Operation through scar tissue. ESTIMATED BLOOD LOSS: Minimal. COMPLICATIONS: None. DRAINS: None. SPECIMEN: Pedicle screw instrumentation to pathology gross only. POSTOPERATIVE CONDITION: Good/stable. DESCRIPTION OF PROCEDURE: The patient was brought to the operating room and in the supine position, general anesthesia with intubation was induced. IV antibiotics were administered 30 minutes prior to incision time. Decadron was not administered due to the patient being insulin-dependent diabetic. Lumbodorsal spine was sterilely prepped and draped free in usual sterile fashion. Utilizing the prior midline incision, sharp dissection was carried through scar tissue in the subcutaneous tissue/scar tissue. Electrocautery dissection was carried through scar tissue to the level lumbodorsal fascia. It was incised right and left midline to the pedicle screw instrumentation. Instrumentation identified, isolated. Interconnecting rods removed bilaterally. Stressing of the fusion revealed no motion. All screws were tight. Screws were removed in a piecemeal fashion. Irrigation of the incision followed with FloSeal. Sequential reapproximation of the paraspinal muscles, lumbodorsal fascia, subcutaneous tissue, dermis, and epidermis. Surgical strips applied. Local anesthetic 1% lidocaine with epinephrine applied on bilateral lateral aspects of the incision. Sterile bandage applied after Dermabond applied and dried. Bandage maintained in place with tape. The patient turned from the prone to supine position on the transport bed where he was awakened, extubated in the operating room, and transported to postoperative recovery in good stable condition. Albert Dixon M.D. DR: RONNIE JOB#: [id number] CC:
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
[2017-11-14 11:46] VITALS: BP 108/65
--- NOTE | 2017-11-14 11:46 | 48 Hour Post Anesthesia Eval ---
Post Anesthesia Evaluation Procedure: Remove Hardware L 4-5, Explore Fusion. Date of Evaluation: Nov 14, 2017 Time of Evaluation: 11:45 Blood Pressure Systolic: 108 0: 65 Pulse Rate: 72 Respiratory Rate: 20 Temperature (Fahrenheit): 97.6 O2 Sat by Pulse Oximetry: 98 Airway: patent Nausea: No Vomiting: No Pain Intensity: 2 Hydration Status: adequate Cardiopulmonary Status: stable Mental Status/LOC: patient returned to baseline Follow-up Care/Observations: n/a Post-Anesthesia Complications: none Follow-up care needed: ready to discharge VICKEY THURSTON M.D. Nov 14, 2017 11:46
--- NOTE | 2017-11-14 15:08 | Discharge Summary ---
Discharge Summary Hospital Course Date of Admission Nov 13, 2017 at 07:07 Date of Discharge Nov 13, 2017 at 17:20 Admitting Diagnosis HPI Christo Aguilar is a 67 year old male who was admitted on Nov 13, 2017 at 07:07 for Discogenic Back Pain Hospital Course [id number] Discharge Discharge Disposition Patient was discharged to Home (01) Lucie Littlejohn NP Nov 14, 2017 15:08
--- NOTE | 2017-11-14 21:15 | Discharge Summary 2 SIG ---
DATE OF ADMISSION: 11/13/2017 DATE OF DISCHARGE: 11/13/2017 X RAY SERVICE TECHNICIAN: Isrrael Campbell M.D. BRIEF HOSPITAL COURSE: The patient is a 67-year-old male who was diagnosed with postoperative pain for the past two months and had been waking up at night complaining of pressure and pain on the chest and arms, lasting for 1 to 5 minutes, sits up and moves around, and sensation resolves. He has history of diabetes mellitus, dyspnea, and chest pain. He was admitted on 11/13/2017, and underwent exploration of fusion mass, on the lumbar spine with removal of pedicle screw instrumentation. He tolerated procedure well. Postoperatively, he was seen by Dr. Campbell for pain management. He was given [place] and Soma and p.r.n. Dilaudid IV for breakthrough pain. He was placed on GI ulcer prophylaxis with Protonix. He was placed on SCDs for DVT prophylaxis. He was encouraged use of incentive spirometry. He was seen by Physical Therapy. Diet was advanced. He had good pain control and was ambulating well. He was eventually discharged home. FINAL DIAGNOSES: 1. Postoperative back pain, pedicle screw instrumentation irritation on the paraspinal muscles. 2. Status post exploration of fusion mass on the lumbar spine. 3. Removal of pedicle screw instrumentation on the lumbar spine. 4. Operation through scar tissue. (Please refer to operative report.) DISPOSITION: The patient was discharged home. DISCHARGE INSTRUCTION: Follow up with surgeon in a week. Albert Dixon M.D. I have been assigned to dictate discharge summary on this account and I was not involved in the patient's management. Lucie Littlejohn N.P. DR: Jr JOB#: [id number] CC: LEFTY
== END 2017-11-13 17:20 | disposition home or self-care (01) | DRG 497 ==
LOC: SDSOVERFLO 07:07 → 3E 12:42
PROC: 0QP004Z Removal of Internal Fixation Device from Lumbar Vertebra, Open Approach (ICD-10-PCS; principal; 2017-11-13 10:00)
DX: T84.84XA Pain due to internal orthopedic prosthetic devices, implants and grafts, initial encounter (principal); Y83.8 Other surgical procedures as the cause of abnormal reaction of the patient, or of later complication, without mention of misadventure at the time of the procedure; F17.200 Nicotine dependence, unspecified, uncomplicated; E11.9 Type 2 diabetes mellitus without complications; Z79.84 Long term (current) use of oral hypoglycemic drugs; R07.89 Other chest pain; R06.00 Dyspnea, unspecified; T14.90XS Injury, unspecified, sequela
CPT/HCPCS: 36415; 82962; 86850; 86900; 86901; 87081; J2250; J2405; J2710